=== PATIENT | female | born 1970 | race Caucasian/White ===

== ENCOUNTER 2020-08-07 12:34 | Day surgery (SDC) | payer OTHER ==
[~2020-08-07] VITALS: Ht 162.6 cm; Wt 87.1 kg
[~2020-08-07 12:34] MED LIST: ACETAMINOPHEN-1 EAC1 PO; CITALOPRAM HBR20 MG PO; DAYPRO600 MG PO; GABAPENTIN100 MG PO; GLIPIZIDE XL5 MG PO; LISINOPRIL-HCT1 EAC2 PO; LORTAB 7.5-5001 EACH PO; MELOXICAM15 MG PO; NORCO 5-325 TA1 EACH PO; PREDNISONE20 MG PO; PRILOSEC20 MG PO; PROTONIX40 MG PO; TRAMADOL HCL50 MG PO; ZITHROMAX250 MG PO
--- NOTE | 2020-08-08 11:06 | PATH ---
[facility] [address] [place], [place] [address] Signed SPECIMEN(S): A ANTRUM/PYLORUS SPECIMEN(S): B LOWER ESOPHAGUS SPECIMEN SOURCE: A. ANTRUM/PYLORUS B. LOWER ESOPHAGUS CLINICAL HISTORY: Pre: GERD, dark stools. Post: Stomach ulcer x 2, normal colon. Esophagogastroduodenoscopy, colonoscopy. MICROSCOPIC DESCRIPTION: Histologic sections of all submitted blocks are examined by light microscopy. These findings, together with the gross examination, support the pathologic diagnosis. FINAL PATHOLOGIC DIAGNOSIS: A. Stomach, antrum/pylorus, biopsy: - Antral mucosa with mild chronic, inactive gastritis and reactive changes. - Negative for Helicobacter organisms on HE stain. - Negative for dysplasia or malignancy. B. Esophagus, lower, biopsy: - Squamous mucosa with increased intraepithelial eosinophils and reactive changes. - Negative for intestinal metaplasia, dysplasia, or malignancy. - See comment. COMMENT: Regarding specimen B: Sections of the lower esophageal biopsy demonstrate squamous mucosa with increased intraepithelial eosinophils (approximately 27 per high power field), eosinophil degranulation, spongiosis, and basal cell hyperplasia. In the correct clinical context, these findings are compatible with eosinophilic esophagitis; correlation with endoscopic findings is necessary for this diagnosis. NAL:cml:C2NR GROSS DESCRIPTION: Two specimens are received in two containers, labeled "KF." A. The specimen, labeled "KF, 1," and designated on the requisition "antrum/pylorus," is received in formalin and consists of one bland soft tissue fragment that measures 0.3 cm in greatest dimension. PATIENT NAME: RICH RAUSCH PATHOLOGY DATE OF : 66 REPORT #: [id number] PHYSICIAN: ADDI HOFF PCP: BEATRIZ CALVILLO MD REPORT IS CONFIDENTIAL AND NOT TO BE RELEASED WITHOUT AUTHORIZATION [facility] [address] [place], [place] [address] Signed The specimen is entirely submitted in cassette (A1). B. The specimen, labeled "KF, 2," and designated on the requisition "lower esophagus," is received in formalin and consists of three thin, bland soft tissue fragments that measure 0.1-0.3 cm in greatest dimension. The specimen is entirely submitted in cassette (B1). Note: Smallest fragment is minute and may not survive processing. AT (under the direct supervision of a pathologist) The Gross Description was prepared using a voice recognition system. The report was reviewed for accuracy; however, sound-alike word errors, addition and/or deletions may occur. If there is any question about this report, please contact Client Services. PERFORMING LABORATORY: The technical component was performed by [facility] [address] (Heavy Equipment Rental Manager: Tressa Kee MD; CLIA# [id number]). [facility] [address] [address] (CLIA# [id number]). Diagnostician: Vero Higgins MD Pathologist Electronically Signed 08/08/2020 Copies: ~ PATIENT NAME: RICH RAUSCH SONG PATHOLOGY DATE OF : 66 REPORT #: [id number] PHYSICIAN: ADDI PATHOLOGY PCP: BEATRIZ CALVILLO MD REPORT IS CONFIDENTIAL AND NOT TO BE RELEASED WITHOUT AUTHORIZATION
--- NOTE | 2020-08-09 07:58 | OR ---
[facility] [address] [place], [place] [address] Signed DATE OF OPERATION: 08/07/2020 SURGEON: Yanet Marie MD PREOPERATIVE DIAGNOSIS: Episodic dark stool. POSTOPERATIVE DIAGNOSIS: 1. Pre-pyloric antral ulcer x2. 2. Normal colon to cecum. PROCEDURES: 1. Esophagogastroduodenoscopy with biopsy. 2. Total colonoscopy to cecum. ANESTHESIA: Intravenous sedation, fentanyl 150 mcg and Versed 4 mg. INDICATIONS: This 50-year-old white woman is a patient of Dr. Yanet Pressley. She was noted to have dark stools in April of this year and blood after wiping, this is not associated with pain upon defecation. She has been on Protonix for quite some time. She is known to have reflux symptoms as well. She has no family history of colon cancer. She is admitted at this time to undergo upper endoscopy and colonoscopy to better characterize her problem and understanding risks of bleeding, infection, perforation. FINDINGS: Upper endoscopy confirmed two pre-pyloric ulcers, somewhat less than 1 cm in size. They were not deep and it had a lucas white base. Most likely this accounts for her probable rectal bleeding issue. The esophagus was normal. There was a poor flap valve, but no sign of large hiatal hernia. CLOtest was negative. On colonoscopy, the prep was good. Complete colonoscopy was undertaken of the cecum. There was no sign of polyps, diverticular formation, or colitis or cancer. DESCRIPTION OF PROCEDURE: The patient was brought to the endoscopy suite, given topical Hurricaine spray, hypopharyngeal anesthesia, and placed in lateral decubitus position. She was given intravenous sedation to the point of slurred speech and nystagmus. A bite block was placed. An Olympus video upper endoscope was passed into the hypopharynx. The vocal Electronically Signed By: YANET MARIE MD 08/09/20 0758 PATIENT NAME: RICH RAUSCH OPERATIVE REPORT DATE OF : 66 REPORT #: [id number] PHYSICIAN: YANET MARIE MD PCP: BEATRIZ PRESSLEY MD REPORT IS CONFIDENTIAL AND NOT TO BE RELEASED WITHOUT AUTHORIZATION [facility] [address] [place], [place] [address] Signed cords were normal. Scope was advanced to the esophagus. Throughout its length, it was normal. Scope was passed to the stomach, which was insufflated with air. Rugal folds were normal. Passage beyond the antrum through the pylorus into the duodenum showed no sign of ulceration. The scope was carefully withdrawn. The pyloric channel appeared normal, but the distal antrum and pre-pyloric area were two definite ulcers, not bleeding, but with a lucas white base. Photographs were taken. The scope was manipulated to allow for biopsy of the antrum for both KARL and pathologic testing. Retroflexed view showed mild proximal gastritis. A poor flap valve, but no sign of ulcer proximally. The scope was straightened and withdrawn. Biopsies then taken of the distal esophageal mucosa though appeared normal. The remaining esophagus was normal. CLOtest was noted to be negative 30 minutes postprocedure. The patient was then prepared for colonoscopy. Additional sedation was given. Digital rectal examination performed showing no sign of anorectal abnormality. The Olympus video colonoscope was passed into the rectum and manipulated throughout the colon, ultimately intubating the cecum itself. The ileocecal valve and appendiceal orifice were normal. Scope was withdrawn examination throughout showed no sign of polyps, diverticular formation, colitis, or cancer. Retroflex view was normal as well. The scope was removed quite carefully through the anal canal to assess for fissure or other problem, there was no such finding. The patient was taken to the recovery room in good condition. CONCLUDING DIAGNOSIS: Most likely dark stool related to pre-pyloric antral ulcers, which are healing. PLAN: We will continue with PPI medication, but additionally give Carafate. We will see her back in 4-6 weeks and assess her clinical progress. MD EMMA Gracia/MODL /[id number] Copies: Electronically Signed By: YANET MARIE MD 08/09/20 0758 PATIENT NAME: RICH RAUSCH OPERATIVE REPORT DATE OF : 66 REPORT #: [id number] PHYSICIAN: YANET MARIE MD PCP: BEATRIZ PRESSLEY MD REPORT IS CONFIDENTIAL AND NOT TO BE RELEASED WITHOUT AUTHORIZATION [facility] [address] [facility] [place], [place] [address] Signed ~ Electronically Signed By: YANET MARIE MD 08/09/20 0758 PATIENT NAME: RICH RAUSCH SONG OPERATIVE REPORT DATE OF : 66 REPORT #: [id number] PHYSICIAN: YANET MARIE MD PCP: BEATRIZ PRESSLEY MD REPORT IS CONFIDENTIAL AND NOT TO BE RELEASED WITHOUT AUTHORIZATION
== END 2020-08-07 14:40 | disposition home or self-care (01) ==
LOC: DS 12:34 → OPS 12:34 → DS 14:00 → OPS 14:00
PROVIDERS: ATTEND Surgery
PROC: 0DJD8ZZ Inspection of Lower Intestinal Tract, Via Natural or Artificial Opening Endoscopic (ICD-10-PCS; 2020-08-07)
PROC: 0DB38ZX Excision of Lower Esophagus, Via Natural or Artificial Opening Endoscopic, Diagnostic (ICD-10-PCS; principal; 2020-08-07 14:00)
PROC: 0DB78ZX Excision of Stomach, Pylorus, Via Natural or Artificial Opening Endoscopic, Diagnostic (ICD-10-PCS; 2020-08-07 14:00)
DX: R19.5 Other fecal abnormalities (principal); K29.50 Unspecified chronic gastritis without bleeding; K21.9 Gastro-esophageal reflux disease without esophagitis; Z79.899 Other long term (current) drug therapy; Z88.5 Allergy status to narcotic agent
CPT/HCPCS: 99153; G0500; J2250; J3010; J7121

== ENCOUNTER 2022-12-15 11:33 | Inpatient (IN) | payer OTHER ==
[~2022-12-15] VITALS: Ht 162.6 cm; Wt 84.0 kg
--- OUTSIDE RECORDS SUMMARY | 2022-12-15 11:36 | XMS ---
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 [place] VISIT COUNT (12 MO.) 1 [facility] TOTAL 1 NOTE: Visits indicate total known visits. ED/UCC VISIT TRACKING (12 MO.) 12/15/2022 11:[address] [facility] [place] TYPE: Emergency COMPLAINT: - ABD/LOWER BACK PAIN INPATIENT VISIT TRACKING (12 MO.) No inpatient visits to display in this time frame [email or web address]
[2022-12-15] MEDS ORDERED: LOSARTAN-HCTZ1 EAC2 PO (12:51)
[2022-12-15] MEDS ORDERED: MELOXICAM7.5 MG PO (12:52)
[2022-12-15] MEDS ORDERED: DULOXETINE HCL30 MG PO (12:53)
[2022-12-15] MEDS ORDERED: VITAMIN D21250 MCG PO (12:53)
[2022-12-16] MEDS ORDERED: GABAPENTIN300 MG PO (08:32)
[2022-12-16] MEDS ORDERED: TRAZODONE HCL50 MG PO (08:33)
[2022-12-16] MEDS ORDERED: SUDOGEST30 MG PO (10:27)
[2022-12-16] MEDS ORDERED: VENTOLIN HFA18 GM INH (10:30)
[2022-12-16] MEDS ORDERED: GUAIFENESIN-CO473 ML PO (10:30)
[2022-12-16] MEDS ORDERED: BENZONATATE100 MG PO (10:31)
== END 2022-12-18 14:19 | disposition home or self-care (01) | DRG 440 ==
LOC: ED 11:33 → MS 11:35
PROVIDERS: ADMIT Family Medicine; ATTEND Family Medicine
DX: K85.90 Acute pancreatitis without necrosis or infection, unspecified (principal); Z20.822 Contact with and (suspected) exposure to COVID-19; E11.40 Type 2 diabetes mellitus with diabetic neuropathy, unspecified; I10 Essential (primary) hypertension; F32.A Depression, unspecified; Z90.49 Acquired absence of other specified parts of digestive tract; Z87.01 Personal history of pneumonia (recurrent); Z90.710 Acquired absence of both cervix and uterus; Z90.89 Acquired absence of other organs; Z79.84 Long term (current) use of oral hypoglycemic drugs; Z79.899 Other long term (current) drug therapy
CPT/HCPCS: 36415; 74177; 74183; 80053; 80061; 81001; 83036; 83690; 83735; 84100; 85025; 87502; A9579; C9113; C9803; J0360; J0696; J0780; J1170; J1650; J1885; J2060; J2405; J7030; J7121; Q9967; U0003

== ENCOUNTER 2023-06-08 14:28 | Emergency (ER) | payer OTHER ==
[~2023-06-08] VITALS: Ht 162.6 cm; Wt 79.5 kg
--- OUTSIDE RECORDS SUMMARY | ~2023-06-08 | XMS | Continuity of Care Document ---
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 Functional Status No information. Immunizations No information. Medications + + + + | date | description | facility | + + + + | 2022-12-18 00:00 | PSEUDOEPHEDRINE HCL | [facility] | + + + + | 2023-05-15 00:00 | PSEUDOEPHEDRINE HCL | [facility] | + + + + | 2023-05-16 00:00 | PSEUDOEPHEDRINE HCL | [facility] | + + + + | 2022-12-18 00:00 | Ergocalciferol (Vitamin | [facility] | | | D2) | | + + + + | 2023-05-15 00:00 | Ergocalciferol (Vitamin | [facility] | | | D2) | | + + + + | 2023-05-16 00:00 | Ergocalciferol (Vitamin | [facility] | | | D2) | | + + + + | 2022-12-18 00:00 | BENZONATATE | [facility] | + + + + | 2023-05-15 00:00 | BENZONATATE | [facility] | + + + + | 2023-05-16 00:00 | BENZONATATE | [facility] | + + + + | 2023-05-16 00:00 | CEFDINIR | [facility] | + + + + | 2022-12-18 00:00 | CITALOPRAM HYDROBROMIDE | [facility] | + + + + | 2023-05-15 00:00 | CITALOPRAM HYDROBROMIDE | [facility] | + + + + | 2023-05-16 00:00 | CITALOPRAM HYDROBROMIDE | [facility] | + + + + | 2014-11-20 00:00 | OMEPRAZOLE | [facility] | + + + + | 2014-11-20 00:00 | OMEPRAZOLE | [facility] | + + + + | 2013-07-19 00:00 | OXAPROZIN | [facility] | + + + + | 2013-07-19 00:00 | OXAPROZIN | [facility] | + + + + | 2014-05-11 00:00 | AZITHROMYCIN | [facility] | + + + + | 2014-05-11 00:00 | AZITHROMYCIN | [facility] | + + + + | 2019-02-11 00:00 | PANTOPRAZOLE SODIUM | [facility] | + + + + | 2019-02-11 00:00 | PANTOPRAZOLE SODIUM | [facility] | + + + + | 2022-12-18 00:00 | GABAPENTIN | [facility] | + + + + | 2023-05-15 00:00 | GABAPENTIN | [facility] | + + + + | 2023-05-16 00:00 | GABAPENTIN | [facility] | + + + + | 2022-12-18 00:00 | MELOXICAM | [facility] | + + + + | 2023-05-15 00:00 | MELOXICAM | [facility] | + + + + | 2023-05-16 00:00 | MELOXICAM | [facility] | + + + + | 2022-12-18 00:00 | predniSONE | [facility] | + + + + | 2023-05-15 00:00 | predniSONE | [facility] | + + + + | 2023-05-16 00:00 | predniSONE | [facility] | + + + + | 2022-12-18 00:00 | GLIPIZIDE | [facility] | + + + + | 2023-05-15 00:00 | GLIPIZIDE | [facility] | + + + + | 2023-05-16 00:00 | GLIPIZIDE | [facility] | + + + + | 2022-12-18 00:00 | DULOXETINE HCL | [facility] | + + + + | 2023-05-15 00:00 | DULOXETINE HCL | [facility] | + + + + | 2023-05-16 00:00 | DULOXETINE HCL | [facility] | + + + + | 2022-12-18 00:00 | TRAZODONE HCL | [facility] | + + + + | 2023-05-15 00:00 | TRAZODONE HCL | [facility] | + + + + | 2023-05-16 00:00 | TRAZODONE HCL | [facility] | + + + + | 2013-08-06 00:00 | HYDROCODONE | [facility] | | | BIT/ACETAMINOPHEN | | + + + + | 2013-08-06 00:00 | HYDROCODONE | [facility] | | | BIT/ACETAMINOPHEN | | + + + + | 2022-12-18 00:00 | ALBUTEROL SULFATE | [facility] | + + + + | 2023-05-15 00:00 | ALBUTEROL SULFATE | [facility] | + + + + | 2023-05-16 00:00 | ALBUTEROL SULFATE | [facility] | + + + + | 2022-12-18 00:00 | | [facility] | | | LOSARTAN/HYDROCHLOROTHIAZID | | | | E | | + + + + | 2023-05-15 00:00 | | [facility] | | | LOSARTAN/HYDROCHLOROTHIAZID | | | | E | | + + + + | 2023-05-16 00:00 | | [facility] | | | LOSARTAN/HYDROCHLOROTHIAZID | | | | E | | + + + + | 2014-11-20 00:00 | ACETAMINOPHEN WITH CODEINE | [facility] | | | | | + + + + | 2014-11-20 00:00 | ACETAMINOPHEN WITH CODEINE | [facility] | | | | | + + + + | 2022-12-18 00:00 | Guaifenesin/Codeine | [facility] | | | Phosphate | | + + + + | 2023-05-15 00:00 | Guaifenesin/Codeine | [facility] | | | Phosphate | | + + + + | 2023-05-16 00:00 | Guaifenesin/Codeine | [facility] | | | Phosphate | | + + + + Problems + + + + | date | description | facility | + + + + | 2014-11-20 00:00 | Gastritis | [facility] | + + + + | 2014-11-20 00:00 | Gastritis | [facility] | + + + + | 2015-04-19 00:00 | Oliguria | [facility] | + + + + | 2015-04-19 00:00 | Oliguria | [facility] | + + + + | 2016-08-01 00:00 | Obstruction of esophagus | [facility] | | | due to food impaction | | + + + + | 2016-08-01 00:00 | Obstruction of esophagus | [facility] | | | due to food impaction | | + + + + | 2019-02-11 00:00 | Abdominal pain | [facility] | + + + + | 2019-02-11 00:00 | Abdominal pain | [facility] | + + + + | 2022-05-09 15:30 | ENCNTR SCREEN MAMMOGRAM | [facility] | | | FOR MALIGNANT NE | | + + + + | 2022-07-08 14:27 | ENCNTR SCREEN MAMMOGRAM | [facility] | | | FOR MALIGNANT NEOPLASM OF | | | | BREAST | | + + + + | 2022-11-05 16:31 | Dizziness and giddiness | [facility] | + + + + | 2022-12-15 00:00 | Pancreatitis | [facility] | + + + + | 2022-12-15 00:00 | Pancreatitis | [facility] | + + + + | 2022-12-17 10:39 | TYPE 2 DIABETES MELLITUS | [facility] | | | WITH DIABETIC NEUROPATHY, | | + + + + | 2022-12-17 10:39 | DEPRESSION, UNSPECIFIED | [facility] | + + + + | 2022-12-17 10:39 | Essential (primary) | [facility] | | | hypertension | | + + + + | 2022-12-17 10:39 | ACUTE PANCREATITIS WITHOUT | [facility] | | | NECROSIS OR INFECTION, | | | | UNSP | | + + + + | 2022-12-17 10:39 | SUPPLIES PACKER (CURRENT) USE OF | [facility] | | | ORAL HYPOGLYCEMIC DRUGS | | + + + + | 2022-12-17 10:39 | OTHER HALFWAY (CURRENT) | [facility] | | | DRUG THERAPY | | + + + + | 2022-12-17 10:39 | PERSONAL HISTORY OF | [facility] | | | PNEUMONIA (RECURRENT) | | + + + + | 2022-12-17 10:39 | ACQUIRED ABSENCE OF OTHER | [facility] | | | SPECIFIED PARTS OF DIGES | | + + + + | 2022-12-17 10:39 | ACQUIRED ABSENCE OF BOTH | [facility] | | | CERVIX AND UTERUS | | + + + + | 2022-12-17 10:39 | ACQUIRED ABSENCE OF OTHER | [facility] | | | ORGANS | | + + + + | 2023 13:38 | UNILATERAL PRIMARY | [facility] | | | OSTEOARTHRITIS, RIGHT HIP | | + + + + | 2023 13:38 | CONTUSION OF RIGHT HIP, | [facility] | | | INITIAL ENCOUNTE | | + + + + | 2023 13:38 | CONTUSION OF RIGHT KNEE, | [facility] | | | INITIAL ENCOUNTER | | + + + + | 2023-04-30 15:42 | 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 | | + + + + | 2023-04-30 15:42 | OTHER SPECIFIED DISORDERS | [facility] | | | OF BONE, THIGH | | + + + + | 2023-05-15 00:00 | Leukocytosis | [facility] | + + + + | 2023-05-15 00:00 | Weakness | [facility] | + + + + | 2023-05-15 12:13 | ELEVATED WHITE BLOOD CELL | [facility] | | | COUNT, UNSPECIFIED | | + + + + | 2023-05-15 12:13 | Essential (primary) | [facility] | | | hypertension | | + + + + | 2023-05-15 12:13 | FEVER, UNSPECIFIED | [facility] | + + + + | 2023-05-15 12:13 | WEAKNESS | [facility] | + + + + | 2023-05-15 12:13 | OTHER SUPPLIES PACKER (CURRENT) | [facility] | | | DRUG THERAPY | | + + + + | 2023-05-16 00:00 | Pyelonephritis | [facility] | + + + + | 2023-05-16 07:32 | Essential (primary) | [facility] | | | hypertension | | + + + + | 2023-05-16 07:32 | Tubulo-interstitial | [facility] | | | nephritis, not specified as | | | | acute or chronic | | + + + + | 2023-05-16 07:32 | FEVER, UNSPECIFIED | [facility] | + + + + | 2023-05-16 07:32 | OTHER HALFWAY (CURRENT) | [facility] | | | DRUG THERAPY | | + + + + Procedures No information. Results/Labs +--------+--------+ +---------+--------+---------+ | test | date | facility | value | unit | notes | +--------+--------+ +---------+--------+---------+ + + | Result panel 1 | + + + + + + + + + | | 2022-12-15 | [facility] | NEGATIVE | (missing) | (missing) | | (unavailable | 15[facility]20:08 [facility] | | | | + + + + + + + + + | Result panel 2 | + + + + + + + + + | | 2022-12-15 | [facility] | NEGATIVE | (missing) | (missing) | | (unavailable | 15:20:08 [facility] | | | | + + + + + + + + + | Result panel 3 | + + + + + + + + + | | 2022-12-15 | [facility] | NEGATIVE | (missing) | (missing) | | (unavailable | 15:20:08 [facility] | | | | + + + + + + + + + | Result panel 4 | + + + + + + + + + | | 2022-12-15 | [facility] | NEGATIVE | (missing) | (missing) | | (unavailable | 15:20:08 [facility] | | | | + + + + + + + + + | Result panel 5 | + + + + + + + + + | | 2022-12-15 | [facility] | YELLOW | (missing) | (missing) | | (unavailable | 16:11:08 [facility] | | | | + + + + + + + + + | Result panel 6 | + + + + + +---------+ + + | | 2022-12-15 | [facility] | CLEAR | (missing) | (missing) | | (unavailable | 16:11:08 [facility] | | | | + + + +---------+ + + + + | Result panel 7 | + + + + + + + + + | | 2022-12-15 | [facility] | NEGATIVE | (missing) | (missing) | | (unavailable | 16:11:08 [facility] | | | | + + + + + + + + + | Result panel 8 | + + + + + + + + + | | 2022-12-15 | [facility] | NEGATIVE | (missing) | (missing) | | (unavailable | 16:11:08 [facility] | | | | + + + + + + + + + | Result panel 9 | + + + + + + + + + | | 2022-12-15 | [facility] | NEGATIVE | (missing) | (missing) | | (unavailable | 16:11:08 [facility] | | | | + + + + + + + + + | Result panel 10 | + + + + + +---------+ + + | | 2022-12-15 | [facility] | 1.020 | (missing) | (missing) | | (unavailable | 16:11:08 [facility] | | | | + + + +---------+ + + + + | Result panel 11 | + + + + + + + + + | | 2022-12-15 | [facility] | NEGATIVE | (missing) | (missing) | | (unavailable | 16:11:08 [facility] | | | | + + + + + + + + + | Result panel 12 | + + + + + +-------+ + + | | 2022-12-15 | [facility] | 5.0 | (missing) | (missing) | | (unavailable | 16:11:08 [facility] | | | | + + + +-------+ + + + + | Result panel 13 | + + + + + + + + + | | 2022-12-15 | [facility] | NEGATIVE | (missing) | (missing) | | (unavailable | 16:11:08 [facility] | | | | + + + + + + + + + | Result panel 14 | + + + + + +-------+ + + | | 2022-12-15 | [facility] | 2.0 | (missing) | (missing) | | (unavailable | 16:11:08 [facility] | | | | + + + +-------+ + + + + | Result panel 15 | + + + + + + + + + | | 2022-12-15 | [facility] | NEGATIVE | (missing) | (missing) | | (unavailable | 16:11:08 [facility] | | | | + + + + + + + + + | Result panel 16 | + + + + + +---------+ + + | | 2022-12-15 | [facility] | TRACE | (missing) | (missing) | | (unavailable | 16:11:08 [facility] | | | | + + + +---------+ + + + + | Result panel 17 | + + + + + +-------+ + + | | 2022-12-15 | [facility] | 0-1 | (missing) | (missing) | | (unavailable | 16::08 | [facility] | | | | + + + +-------+ + + + + | Result panel 18 | + + + + + +--------+ + + | | 2022-12-15 | [facility] | 7-11 | (missing) | (missing) | | (unavailable | 16:11:08 [facility] | | | | + + + +--------+ + + + + | Result panel 19 | + + + + + + + + + | | 2022-12-15 | [facility] | SQUAMOUS 3+ | (missing) | (missing) | | (unavailable | 16:11:08 [facility] | | | | + + + + + + + + + | Result panel 20 | + + + + + +------+ + + | | 2022-12-15 | [facility] | 1+ | (missing) | (missing) | | (unavailable | 16:11:08 [facility] | | | | + + + +------+ + + + + | Result panel 21 | + + + + + + + + + | | 2022-12-15 | [facility] | NONE SEEN | (missing) | (missing) | | (unavailable | 16:11:08 [facility] | | | | + + + + + + + + + | Result panel 22 | + + + + + +------+ + + | | 2022-12-15 | [facility] | No | (missing) | (missing) | | (unavailable | 16:11:08 [facility] | | | | + + + +------+ + + + + | Result panel 23 | + + + + + +-------+---------+ + | | 2022-12-16 | [facility] | 3.8 | mg/dL | (missing) | | (unavailable | 05:23:08 [facility] | | | | + + + +-------+---------+ + + + | Result panel 24 | + + + + + +-------+---------+ + | | 2022-12-16 | [facility] | 1.9 | mg/dL | (missing) | | (unavailable | 05:23:08 [facility] | | | | + + + +-------+---------+ + + + | Result panel 25 | + + + + + +-------+---------+ + | | 2022-12-16 | [facility] | 118 | mg/dL | (missing) | | (unavailable | 05:23:08 [facility] | | | | + + + +-------+---------+ + + + | Result panel 26 | + + + + + +------+ + + | | 2022-12-16 | [facility] | 54 | (missing) | (missing) | | (unavailable | 05:23:08 [facility] | | | | + + + +------+ + + + + | Result panel 27 | + + + + + +---------+ + + | | 2022-12-16 | [facility] | 64.00 | (missing) | (missing) | | (unavailable | 05:23:08 [facility] | | | | + + + +---------+ + + + + | Result panel 28 | + + + + + +------+---------+ + | | 2022-12-16 | [facility] | 47 | mg/dL | (missing) | | (unavailable | 05:23:08 [facility] | | | | + + + +------+---------+ + + + | Result panel 29 | + + + + + +-------+ + + | | 2022-12-16 | [facility] | 2.2 | (missing) | (missing) | | (unavailable | 05:23:08 [facility] | | | + + + +-------+ + + + + | Result panel 30 | + + + + + +------+ + + | | 2022-12-16 | [facility] | 16 | (missing) | (missing) | | (unavailable | 05:23:08 [facility] | | | | + + + +------+ + + + + | Result panel 31 | + + + + + +------+ + + | | 2022-12-16 | [facility] | 83 | (missing) | (missing) | | (unavailable | 05:23:08 [facility] | | | | + + + +------+ + + + + | Result panel 32 | + + + + + +-------+ + + | | 2022-12-16 | [facility] | 6.4 | (missing) | (missing) | | (unavailable | 05:23:08 [facility] | | | | + + + +-------+ + + + + | Result panel 33 | + + + + + +------+ + + | | 2022-12-17 | [facility] | 90 | (missing) | (missing) | | (unavailable | 05:25:08 [facility] | | | | + + + +------+ + + + + | Result panel 34 | + + + + + +-------+ + + | | 2022-12-18 | [facility] | 9.4 | (missing) | (missing) | | (unavailable | 05:56:08 [facility] | | | | + + + +-------+ + + + + | Result panel 35 | + + + + + +--------+ + + | | 2022-12-18 | [facility] | 4.62 | (missing) | (missing) | | (unavailable | 05:56:08 [facility] | | | | + + + +--------+ + + + + | Result panel 36 | + + + + + +--------+ + + | | 2022-12-18 | [facility] | 12.9 | (missing) | (missing) | | (unavailable | 05:56:08 [facility] | | | | + + + +--------+ + + + + | Result panel 37 | + + + + + +--------+ + + | | 2022-12-18 | [facility] | 38.5 | (missing) | (missing) | | (unavailable | 05:56:08 [facility] | | | | + + + +--------+ + + + + | Result panel 38 | + + + + + +--------+ + + | | 2022-12-18 | [facility] | 83.3 | (missing) | (missing) | | (unavailable | 05:56:08 [facility] | | | | + + + +--------+ + + + + | Result panel 39 | + + + + + +--------+ + + | | 2022-12-18 | [facility] | 27.9 | (missing) | (missing) | | (unavailable | 05:56:08 [facility] | | | | + + + +--------+ + + + + | Result panel 40 | + + + + + +--------+ + + | | 2022-12-18 | [facility] | 33.5 | (missing) | (missing) | | (unavailable | 05:56:08 [facility] | | | + + + +--------+ + + + + | Result panel 41 | + + + + + +--------+ + + | | 2022-12-18 | [facility] | 14.4 | (missing) | (missing) | | (unavailable | 05:56:08 [facility] | | | + + + +--------+ + + + + | Result panel 42 | + + + + + +-------+ + + | | 2022-12-18 | [facility] | 264 | (missing) | (missing) | | (unavailable | 05:56:08 [facility] | | | + + + +-------+ + + + + | Result panel 43 | + + + + + +--------+ + + | | 2022-12-18 | [facility] | 80.7 | (missing) | (missing) | | (unavailable | 05:56:08 [facility] | | | | + + + +--------+ + + + + | Result panel 44 | + + + + + +--------+ + + | | 2022-12-18 | [facility] | 11.3 | (missing) | (missing) | | (unavailable | 05:56:08 [facility] | | | + + + +--------+ + + + + | Result panel 45 | + + + + + +-------+ + + | | 2022-12-18 | [facility] | 6.7 | (missing) | (missing) | | (unavailable | 05:56:08 [facility] | | | + + + +-------+ + + + + | Result panel 46 | + + + + + +-------+ + + | | 2022-12-18 | [facility] | 1.2 | (missing) | (missing) | | (unavailable | 05:56:08 [facility] | | | | + + + +-------+ + + + + | Result panel 47 | + + + + + +-------+ + + | | 2022-12-18 | [facility] | 0.1 | (missing) | (missing) | | (unavailable | 05:56:08 [facility] | | | | + + + +-------+ + + + + | Result panel 48 | + + + + + +-------+---------+ + | | 2022-12-18 | [facility] | 122 | mg/dL | (missing) | | (unavailable | 05:56:08 [facility] | | | | + + + +-------+---------+ + + + | Result panel 49 | + + + + + +-----+---------+ + | | 2022-12-18 | [facility] | 7 | mg/dL | (missing) | | (unavailable | 05:56:08 [facility] | | | | + + + +-----+---------+ + + + | Result panel 50 | + + + + + +--------+---------+ + | | 2022-12-18 | [facility] | 0.68 | mg/dL | (missing) | | (unavailable | 05:56:08 [facility] | | | | + + + +--------+---------+ + + + | Result panel 51 | + + + + + +-------+ + + | | 2022-12-18 | [facility] | 103 | (missing) | (missing) | | (unavailable | 05:56:08 [facility] | | | + + + +-------+ + + + + | Result panel 52 | + + + + + +---------+ + + | | 2022-12-18 | [facility] | 10.29 | (missing) | (missing) | | (unavailable | 05:56:08 [facility] | | | | + + + +---------+ + + + + | Result panel 53 | + + + + + +-------+ + + | | 2022-12-18 | [facility] | 142 | (missing) | (missing) | | (unavailable | 05:56:08 [facility] | | | | + + + +-------+ + + + + | Result panel 54 | + + + + + +-------+ + + | | 2022-12-18 | [facility] | 3.5 | (missing) | (missing) | | (unavailable | [facility]:56:08 [facility] | | | | + + + +-------+ + + + + | Result panel 55 | + + + + + +-------+ + + | | 2022-12-18 | [facility] | 105 | (missing) | (missing) | | (unavailable | [facility]56:08 [facility] | | | | + + + +-------+ + + + + | Result panel 56 | + + + + + +------+ + + | | 2022-12-18 | [facility] | 27 | (missing) | (missing) | | (unavailable | [facility]56:08 [facility] | | | | + + + +------+ + + + + | Result panel 57 | + + + + + +--------+ + + | | 2022-12-18 | [facility] | 13.5 | (missing) | (missing) | | (unavailable | [facility]:56:08 [facility] | | | | + + + +--------+ + + + + | Result panel 58 | + + + + + +-------+---------+ + | | 2022-12-18 | [facility] | 8.7 | mg/dL | (missing) | | (unavailable | 05:56:08 [facility] | | | | + + + +-------+---------+ + + + | Result panel 59 | + + + + + +-------+ + + | | 2022-12-18 | [facility] | 6.9 | (missing) | (missing) | | (unavailable | [facility]56:08 [facility] | | | | + + + +-------+ + + + + | Result panel 60 | + + + + + +-------+ + + | | 2022-12-18 | [facility] | 3.1 | (missing) | (missing) | | (unavailable | [facility]:56:08 [facility] | | | | + + + +-------+ + + + + | Result panel 61 | + + + + + +-------+ + + | | 2022-12-18 | [facility] | 3.8 | (missing) | (missing) | | (unavailable | 05:56:08 | [facility] | | | | + + + +-------+ + + + + | Result panel 62 | + + + + + +--------+ + + | | 2022-12-18 | [facility] | 0.82 | (missing) | (missing) | | (unavailable | 05:56:08 | [facility] | | | | + + + +--------+ + + + + | Result panel 63 | + + + + + +-------+ + + | | 2022-12-18 | [facility] | 0.5 | (missing) | (missing) | | (unavailable | 05:56:08 | [facility] | | | | + + + +-------+ + + + + | Result panel 64 | + + + + + +------+ + + | | 2022-12-18 | [facility] | 49 | (missing) | (missing) | | (unavailable | 05:56:08 | [facility] | | | | + + + +------+ + + + + | Result panel 65 | + + + + + +-------+ + + | | 2022-12-18 | [facility] | 102 | (missing) | (missing) | | (unavailable | 05:56:08 | [facility] | | | | + + + +-------+ + + + + | Result panel 66 | + + + + + +------+ + + | | 2022-12-18 | [facility] | 97 | (missing) | (missing) | | (unavailable | 05:56:08 | [facility] | | | | + + + +------+ + + + + | Result panel 67 | + + + + + +-------+ + + | | 2022-12-18 | [facility] | 116 | (missing) | (missing) | | (unavailable | 11:30:08 | [facility] | | | | + + + +-------+ + + + + | Result panel 68 | + + + + + + + + + | | 2023-05-15 | [facility] | NEGATIVE | (missing) | (missing) | | (unavailable | 12:50:07 | [facility] | | | | + + + + + + + + + | Result panel 69 | + + + + + + + + + | | 2023-05-15 | [facility] | NEGATIVE | (missing) | (missing) | | (unavailable | 12:50:07 | [facility] | | | | + + + + + + + + + | Result panel 70 | + + + + + + + + + | | 2023-05-15 | [facility] | NEGATIVE | (missing) | (missing) | | (unavailable | 12:50:07 | [facility] | | | | + + + + + + + + + | Result panel 71 | + + + + + + + + + | | 2023-05-15 | [facility] | NEGATIVE | (missing) | (missing) | | (unavailable | 12:50:07 | [facility] | | | | + + + + + + + + + | Result panel 72 | + + + + + + + + + | | 2023-05-15 | [facility] | NEGATIVE | (missing) | (missing) | | (unavailable | 12:50:07 | [facility] | | | | + + + + + + + + + | Result panel 73 | + + + + + + + + + | | 2023-05-15 | [facility] | NEGATIVE | (missing) | (missing) | | (unavailable | 12:50:07 | [facility] | | | | + + + + + + + + + | Result panel 74 | + + + + + + + + + | | 2023-05-15 | [facility] | NEGATIVE | (missing) | (missing) | | (unavailable | 12:50:07 | [facility] | | | | + + + + + + + + + | Result panel 75 | + + + + + + + + + | | 2023-05-15 | [facility] | NEGATIVE | (missing) | (missing) | | (unavailable | 12:50:07 | [facility] | | | | + + + + + + + + + | Result panel 76 | + + + + + +--------+ + + | | 2023-05-15 | [facility] | 30.0 | (missing) | (missing) | | (unavailable | 13:15:07 | [facility] | | | | + + + +--------+ + + + + | Result panel 77 | + + + + + +------+ + + | | 2023-05-15 | [facility] | 94 | (missing) | (missing) | | (unavailable | 13:15:07 | [facility] | | | | + + + +------+ + + + + | Result panel 78 | + + + + + +-----+ + + | | 2023-05-15 | [facility] | 3 | (missing) | (missing) | | (unavailable | 13:15:07 | [facility] | | | | + + + +-----+ + + + + | Result panel 79 | + + + + + +-----+ + + | | 2023-05-15 | [facility] | 2 | (missing) | (missing) | | (unavailable | 13:15:07 | [facility] | | | | + + + +-----+ + + + + | Result panel 80 | + + + + + +-----+ + + | | 2023-05-15 | [facility] | 1 | (missing) | (missing) | | (unavailable | 13:15:07 | [facility] | | | | + + + +-----+ + + + + | Result panel 81 | + + + + + +--------+ + + | | 2023-05-15 | [facility] [facility] | 5.29 | (missing) | (missing) | | (unavailable | 13:15:07 | [facility] | | | | + + + +--------+ + + + + | Result panel 82 | + + + + + +--------+ + + | | 2023-05-15 | [facility] | 14.7 | (missing) | (missing) | | (unavailable | 13:15:07 [facility] | | | | + + + +--------+ + + + + | Result panel 83 | + + + + + +-------+---------+ + | | 2023-05-15 | [facility] | 209 | mg/dL | (missing) | | (unavailable | 13:15:07 [facility] | | | + + + +-------+---------+ + + + | Result panel 84 | + + + + + +------+---------+ + | | 2023-05-15 | [facility] | 15 | mg/dL | (missing) | | (unavailable | 13:15:07 [facility] | | | + + + +------+---------+ + + + | Result panel 85 | + + + + + +--------+---------+ + | | 2023-05-15 | [facility] | 0.96 | mg/dL | (missing) | | (unavailable | 13:15:07 [facility] | | | + + + +--------+---------+ + + + | Result panel 86 | + + + + + +------+ + + | | 2023-05-15 | [facility] | 70 | (missing) | (missing) | | (unavailable | 13:15:07 [facility] | | | + + + +------+ + + + + | Result panel 87 | + + + + + +---------+ + + | | 2023-05-15 | [facility] | 15.62 | (missing) | (missing) | | (unavailable | [facility]:15:07 [facility] | | | + + + +---------+ + + + + | Result panel 88 | + + + + + +-------+ + + | | 2023-05-15 | [facility] | 136 | (missing) | (missing) | | (unavailable | 13:15:07 [facility] | | | + + + +-------+ + + + + | Result panel 89 | + + + + + +--------+ + + | | 2023-05-15 | [facility] | 45.0 | (missing) | (missing) | | (unavailable | [facility]:15:07 [facility] | | | + + + +--------+ + + + + | Result panel 90 | + + + + + +-------+ + + | | 2023-05-15 | [facility] | 3.5 | (missing) | (missing) | | (unavailable | [facility]:15:07 [facility] | | | + + + +-------+ + + + + | Result panel 91 | + + + + + +------+ + + | | 2023-05-15 | [facility] | 97 | (missing) | (missing) | | (unavailable | 13:15:07 [facility] | | | + + + +------+ + + + + | Result panel 92 | + + + + + +------+ + + | | 2023-05-15 | [facility] | 28 | (missing) | (missing) | | (unavailable | 13:15:07 [facility] | | | + + + +------+ + + + + | Result panel 93 | + + + + + +--------+ + + | | 2023-05-15 | [facility] | 14.5 | (missing) | (missing) | | (unavailable | 13:15:07 [facility] | | | + + + +--------+ + + + + | Result panel 94 | + + + + + +-------+---------+ + | | 2023-05-15 | [facility] | 9.4 | mg/dL | (missing) | | (unavailable | 13:15:07 [facility] | | | + + + +-------+---------+ + + + | Result panel 95 | + + + + + +-------+ + + | | 2023-05-15 | [facility] | 8.6 | (missing) | (missing) | | (unavailable | [facility]:15:07 [facility] | | | + + + +-------+ + + + + | Result panel 96 | + + + + + +-------+ + + | | 2023-05-15 | [facility] | 3.4 | (missing) | (missing) | | (unavailable | [facility]:15:07 [facility] | | | + + + +-------+ + + + + | Result panel 97 | + + + + + +-------+ + + | | 2023-05-15 | [facility] | 5.2 | (missing) | (missing) | | (unavailable | [facility]:15:07 [facility] | | | + + + +-------+ + + + + | Result panel 98 | + + + + + +--------+ + + | | 2023-05-15 | [facility] | 0.65 | (missing) | (missing) | | (unavailable | 13:15:07 [facility] | | | + + + +--------+ + + + + | Result panel 99 | + + + + + +-------+ + + | | 2023-05-15 | [facility] | 0.5 | (missing) | (missing) | | (unavailable | [facility]:15:07 [facility] | | | + + + +-------+ + + + + | Result panel 100 | + + + + + +--------+ + + | | 2023-05-15 | [facility] | 85.0 | (missing) | (missing) | | (unavailable | [facility]:15:07 [facility] | | | + + + +--------+ + + + + | Result panel 101 | + + + + + +------+ + + | | 2023-05-15 | [facility] | 17 | (missing) | (missing) | | (unavailable | [facility]15:07 [facility] | | | + + + +------+ + + + + | Result panel 102 | + + + + + +------+ + + | | 2023-05-15 | [facility] | 20 | (missing) | (missing) | | (unavailable | 13:15:07 [facility] | | | + + + +------+ + + + + | Result panel 103 | + + + + + +-------+ + + | | 2023-05-15 | [facility] | 101 | (missing) | (missing) | | (unavailable | 13:15:07 [facility] | | | + + + +-------+ + + + + | Result panel 104 | + + + + + +------+ + + | | 2023-05-15 | [facility] | 38 | (missing) | (missing) | | (unavailable | 13:15:07 [facility] | | | + + + +------+ + + + + | Result panel 105 | + + + + + +------+ + + | | 2023-05-15 | [facility] | 94 | (missing) | (missing) | | (unavailable | 13:15:07 [facility] | | | + + + +------+ + + + + | Result panel 106 | + + + + + +--------+ + + | | 2023-05-15 | [facility] | 27.9 | (missing) | (missing) | | (unavailable | [facility]:15:07 [facility] | | | + + + +--------+ + + + + | Result panel 107 | + + + + + +-----+ + + | | 2023-05-15 | [facility] | 3 | (missing) | (missing) | | (unavailable | [facility]15:07 [facility] | | | + + + +-----+ + + + + | Result panel 108 | + + + + + +-----+ + + | | 2023-05-15 | [facility] | 2 | (missing) | (missing) | | (unavailable | 13[facility]15:07 [facility] | | | + + + +-----+ + + + + | Result panel 109 | + + + + + +-----+ + + | | 2023-05-15 | [facility] | 1 | (missing) | (missing) | | (unavailable | 13:15:07 [facility] | | | + + + +-----+ + + + + | Result panel 110 | + + + + + +--------+ + + | | 2023-05-15 | [facility] | 32.8 | (missing) | (missing) | | (unavailable | [facility]:15:07 [facility] | | | + + + +--------+ + + + + | Result panel 111 | + + + + + +--------+ + + | | 2023-05-15 | [facility] | 15.0 | (missing) | (missing) | | (unavailable | [facility]15:07 [facility] | | | + + + +--------+ + + + + | Result panel 112 | + + + + + +-------+ + + | | 2023-05-15 | [facility] | 305 | (missing) | (missing) | | (unavailable | 13:15:07 [facility] | | | + + + +-------+ + + + + | Result panel 113 | + + + + + +-------+ + + | | 2023-05-15 | [facility] | 1.4 | (missing) | (missing) | | (unavailable | 14:24:07 [facility] | | | + + + +-------+ + + + + | Result panel 114 | + + + + + +-------+ + + | | 2023-05-15 | [facility] | 1.4 | (missing) | (missing) | | (unavailable | 14:24:07 [facility] | | | + + + +-------+ + + + + | Result panel 115 | + + + + + + + + + | | 2023-05-15 | [facility] | YELLOW | (missing) | (missing) | | (unavailable | 15:20:07 [facility] | | | + + + + + + + + + | Result panel 116 | + + + + + +---------+ + + | | 2023-05-15 | [facility] | CLEAR | (missing) | (missing) | | (unavailable | 15:20:07 [facility] | | | + + + +---------+ + + + + | Result panel 117 | + + + + + + + + + | | 2023-05-15 | [facility] | NEGATIVE | (missing) | (missing) | | (unavailable | 15:20:07 [facility] | | | + + + + + + + + + | Result panel 118 | + + + + + + + + + | | 2023-05-15 | [facility] | NEGATIVE | (missing) | (missing) | | (unavailable | 15:20:07 [facility] | | | + + + + + + + + + | Result panel 119 | + + + + + +---------+ + + | | 2023-05-15 | [facility] | TRACE | (missing) | (missing) | | (unavailable | 15:20:07 [facility] | | | + + + +---------+ + + + + | Result panel 120 | + + + + + +---------+ + + | | 2023-05-15 | [facility] | 1.015 | (missing) | (missing) | | (unavailable | 15:20:07 [facility] | | | + + + +---------+ + + + + | Result panel 121 | + + + + + + + + + | | 2023-05-15 | [facility] | NEGATIVE | (missing) | (missing) | | (unavailable | 15:20:07 [facility] | | | + + + + + + + + + | Result panel 122 | + + + + + +-------+ + + | | 2023-05-15 | [facility] | 5.0 | (missing) | (missing) | | (unavailable | 15:20:07 [facility] | | | + + + +-------+ + + + + | Result panel 123 | + + + + + + + + + | | 2023-05-15 | [facility] | NEGATIVE | (missing) | (missing) | | (unavailable | 15:20:07 [facility] | | | + + + + + + + + + | Result panel 124 | + + + + + +-------+ + + | | 2023-05-15 | [facility] | 1.0 | (missing) | (missing) | | (unavailable | 15:20:07 [facility] | | | + + + +-------+ + + + + | Result panel 125 | + + + + + + + + + | | 2023-05-15 | [facility] | NEGATIVE | (missing) | (missing) | | (unavailable | 15:20:07 [facility] | | | + + + + + + + + + | Result panel 126 | + + + + + + + + + | | 2023-05-15 | [facility] | NEGATIVE | (missing) | (missing) | | (unavailable | 15:20:07 [facility] | | | + + + + + + + + + | Result panel 127 | + + + + + +-------+ + + | | 2023-05-15 | [facility] | 0-1 | (missing) | (missing) | | (unavailable | 15:20:07 [facility] | | | + + + +-------+ + + + + | Result panel 128 | + + + + + +-------+ + + | | 2023-05-15 | [facility] | 4-6 | (missing) | (missing) | | (unavailable | 15:20:07 [facility] | | | + + + +-------+ + + + + | Result panel 129 | + + + + + + + + + | | 2023-05-15 | [facility] | SQUAMOUS 2+ | (missing) | (missing) | | (unavailable | 15:20:07 [facility] | | | | + + + + + + + + + | Result panel 130 | + + + + + + + + + | | 2023-05-15 | [facility] | NONE SEEN | (missing) | (missing) | | (unavailable | 15:20:07 [facility] | | | + + + + + + + + + | Result panel 131 | + + + + + + + + + | | 2023-05-15 | [facility] | NONE SEEN | (missing) | (missing) | | (unavailable | 15:20:07 [facility] | | | + + + + + + + + + | Result panel 132 | + + + + + + + + + | | 2023-05-15 | [facility] | NONE SEEN | (missing) | (missing) | | (unavailable | 15:20:07 [facility] | | | + + + + + + + + + | Result panel 133 | + + + + + +------+ + + | | 2023-05-15 | [facility] | No | (missing) | (missing) | | (unavailable | 15:20:07 [facility] | | | + + + +------+ + + + + | Result panel 134 | + + + + + + + + + | | 2023-05-15 | [facility] | CLEAN CATCH | (missing) | (missing) | | (unavailable | 15:20:07 [facility] | | | + + + + + + + + + | Result panel 135 | + + + + + + + + + | | 2023-05-15 | [facility] | YELLOW | (missing) | (missing) | | (unavailable | 15:20:07 [facility] | | | + + + + + + + + + | Result panel 136 | + + + + + +---------+ + + | | 2023-05-15 | [facility] | CLEAR | (missing) | (missing) | | (unavailable | 15:20:07 [facility] | | | + + + +---------+ + + + + | Result panel 137 | + + + + + + + + + | | 2023-05-15 | [facility] | NEGATIVE | (missing) | (missing) | | (unavailable | 15:20:07 [facility] | | | + + + + + + + + + | Result panel 138 | + + + + + + + + + | | 2023-05-15 | [facility] | NEGATIVE | (missing) | (missing) | | (unavailable | 15:20:07 [facility] | | | + + + + + + + + + | Result panel 139 | + + + + + +---------+ + + | | 2023-05-15 | [facility] | TRACE | (missing) | (missing) | | (unavailable | 15:20:07 [facility] | | | + + + +---------+ + + + + | Result panel 140 | + + + + + +---------+ + + | | 2023-05-15 | [facility] | 1.015 | (missing) | (missing) | | (unavailable | 15:20:07 [facility] | | | | + + + +---------+ + + + + | Result panel 141 | + + + + + + + + + | | 2023-05-15 | [facility] | NEGATIVE | (missing) | (missing) | | (unavailable | 15:20:07 [facility] | | | | + + + + + + + + + | Result panel 142 | + + + + + +-------+ + + | | 2023-05-15 | [facility] | 5.0 | (missing) | (missing) | | (unavailable | 15:20:07 [facility] | | | + + + +-------+ + + + + | Result panel 143 | + + + + + + + + + | | 2023-05-15 | [facility] | NEGATIVE | (missing) | (missing) | | (unavailable | 15:20:07 [facility] | | | | + + + + + + + + + | Result panel 144 | + + + + + +-------+ + + | | 2023-05-15 | [facility] | 1.0 | (missing) | (missing) | | (unavailable | 15:20:07 [facility] | | | | + + + +-------+ + + + + | Result panel 145 | + + + + + + + + + | | 2023-05-15 | [facility] | NEGATIVE | (missing) | (missing) | | (unavailable | 15:20:07 [facility] | | | | + + + + + + + + + | Result panel 146 | + + + + + + + + + | | 2023-05-15 | [facility] | NEGATIVE | (missing) | (missing) | | (unavailable | 15:20:07 [facility] | | | | + + + + + + + + + | Result panel 147 | + + + + + +-------+ + + | | 2023-05-15 | [facility] | 0-1 | (missing) | (missing) | | (unavailable | 15:20:07 [facility] | | | | + + + +-------+ + + + + | Result panel 148 | + + + + + +-------+ + + | | 2023-05-15 | [facility] | 4-6 | (missing) | (missing) | | (unavailable | 15:20:07 [facility] | | | + + + +-------+ + + + + | Result panel 149 | + + + + + + + + + | | 2023-05-15 | [facility] | SQUAMOUS 2+ | (missing) | (missing) | | (unavailable | 15:20:07 [facility] | | | | + + + + + + + + + | Result panel 150 | + + + + + + + + + | | 2023-05-15 | [facility] | NONE SEEN | (missing) | (missing) | | (unavailable | 15:20:07 [facility] | | | | + + + + + + + + + | Result panel 151 | + + + + + + + + + | | 2023-05-15 | [facility] | NONE SEEN | (missing) | (missing) | | (unavailable | 15:20:07 [facility] | | | + + + + + + + + + | Result panel 152 | + + + + + + + + + | | 2023-05-15 | [facility] | NONE SEEN | (missing) | (missing) | | (unavailable | 15:20:07 [facility] | | | + + + + + + + + + | Result panel 153 | + + + + + +------+ + + | | 2023-05-15 | [facility] | No | (missing) | (missing) | | (unavailable | 15:20:07 [facility] | | | | + + + +------+ + + + + | Result panel 154 | + + + + + + + + + | | 2023-05-15 | [facility] | CLEAN CATCH | (missing) | (missing) | | (unavailable | 15:20:07 [facility] | | | | + + + + + + + + + | Result panel 155 | + + + + + +-------+ + + | | 2023-05-16 | [facility] | 2.8 | (missing) | (missing) | | (unavailable | 08:08:07 [facility] | | | | + + + +-------+ + + + + | Result panel 156 | + + + + + +-------+ + + | | 2023-05-16 | [facility] | 0.2 | (missing) | (missing) | | (unavailable | 08:08:07 [facility] | | | + + + +-------+ + + + + | Result panel 157 | + + + + + +-------+---------+ + | | 2023-05-16 | [facility] | 166 | mg/dL | (missing) | | (unavailable | 08:08:07 [facility] | | | | + + + +-------+---------+ + + + | Result panel 158 | + + + + + +------+---------+ + | | 2023-05-16 | [facility] | 13 | mg/dL | (missing) | | (unavailable | 08:08:07 [facility] | | | + + + +------+---------+ + + + | Result panel 159 | + + + + + +--------+---------+ + | | 2023-05-16 | [facility] | 0.81 | mg/dL | (missing) | | (unavailable | 08:08:07 [facility] | | | | + + + +--------+---------+ + + + | Result panel 160 | + + + + + +------+ + + | | 2023-05-16 | [facility] | 86 | (missing) | (missing) | | (unavailable | 08:08:07 [facility] | | | + + + +------+ + + + + | Result panel 161 | + + + + + +---------+ + + | | 2023-05-16 | [facility] | 16.04 | (missing) | (missing) | | (unavailable | 08:08:07 [facility] | | | + + + +---------+ + + + + | Result panel 162 | + + + + + +-------+ + + | | 2023-05-16 | [facility] | 136 | (missing) | (missing) | | (unavailable | 08:08:07 [facility] | | | | + + + +-------+ + + + + | Result panel 163 | + + + + + +-------+ + + | | 2023-05-16 | [facility] | 3.5 | (missing) | (missing) | | (unavailable | 08:08:07 [facility] | | | | + + + +-------+ + + + + | Result panel 164 | + + + + + +-------+ + + | | 2023-05-16 | [facility] | 101 | (missing) | (missing) | | (unavailable | 08:08:07 [facility] | | | | + + + +-------+ + + + + | Result panel 165 | + + + + + +------+ + + | | 2023-05-16 | [facility] | 29 | (missing) | (missing) | | (unavailable | 08:08:07 [facility] | | | + + + +------+ + + + + | Result panel 166 | + + + + + +-------+ + + | | 2023-05-16 | [facility] | 9.5 | (missing) | (missing) | | (unavailable | 08:: | [facility] | | | | + + + +-------+ + + + + | Result panel 167 | + + + + + +-------+---------+ + | | 2023-05-16 | [facility] | 8.5 | mg/dL | (missing) | | (unavailable | 08:08:07 [facility] | | | | + + + +-------+---------+ + + + | Result panel 168 | + + + + + +-------+ + + | | 2023-05-16 | [facility] | 7.4 | (missing) | (missing) | | (unavailable | 08:08: | [facility] | | | | + + + +-------+ + + + + | Result panel 169 | + + + + + +-------+ + + | | 2023-05-16 | [facility] | 2.7 | (missing) | (missing) | | (unavailable | 08::07 | [facility] | | | | + + + +-------+ + + + + | Result panel 170 | + + + + + +-------+ + + | | 2023-05-16 | [facility] | 4.7 | (missing) | (missing) | | (unavailable | 08:08:07 [facility] | | | + + + +-------+ + + + + | Result panel 171 | + + + + + +--------+ + + | | 2023-05-16 | [facility] | 0.57 | (missing) | (missing) | | (unavailable | 08:08:07 [facility] | | | + + + +--------+ + + + + | Result panel 172 | + + + + + +-------+ + + | | 2023-05-16 | [facility] | 0.5 | (missing) | (missing) | | (unavailable | 08:08:07 [facility] | | | + + + +-------+ + + + + | Result panel 173 | + + + + + +------+ + + | | 2023-05-16 | [facility] | 15 | (missing) | (missing) | | (unavailable | 08:08:07 [facility] | | | | + + + +------+ + + + + | Result panel 174 | + + + + + +------+ + + | | 2023-05-16 | [facility] | 13 | (missing) | (missing) | | (unavailable | 08:08:07 [facility] | | | | + + + +------+ + + + + | Result panel 175 | + + + + + +------+ + + | | 2023-05-16 | [facility] | 83 | (missing) | (missing) | | (unavailable | 08:08:07 [facility] | | | | + + + +------+ + + + + | Result panel 176 | + + + + + +------+ + + | | 2023-05-16 | [facility] | 40 | (missing) | (missing) | | (unavailable | 08:08:07 [facility] | | | | + + + +------+ + + + + | Result panel 177 | + + + + + +--------+ + + | | 2023-05-16 | [facility] | 15.8 | (missing) | (missing) | | (unavailable | 08:08:07 [facility] | | | | + + + +--------+ + + + + | Result panel 178 | + + + + + +--------+ + + | | 2023-05-16 | [facility] | 4.76 | (missing) | (missing) | | (unavailable | 08:08:07 [facility] | | | + + + +--------+ + + + + | Result panel 179 | + + + + + +--------+ + + | | 2023-05-16 | [facility] | 13.1 | (missing) | (missing) | | (unavailable | 08:08:07 [facility] | | | + + + +--------+ + + + + | Result panel 180 | + + + + + +--------+ + + | | 2023-05-16 | [facility] | 41.0 | (missing) | (missing) | | (unavailable | 08:08:07 [facility] | | | + + + +--------+ + + + + | Result panel 181 | + + + + + +--------+ + + | | 2023-05-16 | [facility] | 86.1 | (missing) | (missing) | | (unavailable | 08:08:07 [facility] | | | + + + +--------+ + + + + | Result panel 182 | + + + + + +--------+ + + | | 2023-05-16 | [facility] | 27.5 | (missing) | (missing) | | (unavailable | 08:08:07 [facility] | | | | + + + +--------+ + + + + | Result panel 183 | + + + + + +--------+ + + | | 2023-05-16 | [facility] | 32.0 | (missing) | (missing) | | (unavailable | 08:08:07 [facility] | | | + + + +--------+ + + + + | Result panel 184 | + + + + + +--------+ + + | | 2023-05-16 | [facility] | 15.2 | (missing) | (missing) | | (unavailable | 08:08:07 [facility] | | | | + + + +--------+ + + + + | Result panel 185 | + + + + + +-------+ + + | | 2023-05-16 | [facility] | 265 | (missing) | (missing) | | (unavailable | 08:08:07 [facility] | | | | + + + +-------+ + + + + | Result panel 186 | + + + + + +--------+ + + | | 2023-05-16 | [facility] | 82.6 | (missing) | (missing) | | (unavailable | 08:08:07 | [facility] | | | | + + + +--------+ + + + + | Result panel 187 | + + + + + +-------+ + + | | 2023-05-16 | [facility] | 7.6 | (missing) | (missing) | | (unavailable | 08:08:07 | [facility] | | | | + + + +-------+ + + + + | Result panel 188 | + + + + + +-------+ + + | | 2023-05-16 | [facility] | 6.8 | (missing) | (missing) | | (unavailable | 08:08:07 | [facility] | | | | + + + +-------+ + + Social History No information. Vital Signs + + + +---------+ | date | measurement | value | units | + + + +---------+ | 2022-12-15 00:00 | BMI | 31.8 | kg/m2 | + + + +---------+ | 2022-12-15 00:00 | height_metric | 162.56 | cm | + + + +---------+ | 2022-12-15 00:00 | height_standard | 64 | in | + + + +---------+ | 2022-12-15 00:00 | weight_metric | 84 | kg | + + + +---------+ | 2022-12-15 00:00 | weight_standard | 185.19 | lb | + + + +---------+ | 2022-12-18 00:00 | BP_diastolic | 83 | mmHg | + + + +---------+ | 2022-12-18 00:00 | BP_systolic | 152 | mmHg | + + + +---------+ | 2022-12-18 00:00 | heart_rate | 92 | /min | + + + +---------+ | 2022-12-18 00:00 | o2_saturation | 96 | % | + + + +---------+ | 2022-12-18 00:00 | respiration_rate | 16 | /min | + + + +---------+ | 2022-12-18 00:00 | temperature_metric | 36.44 | C | | | | | | + + + +---------+ | 2022-12-18 00:00 | | 97.6 | F | | | temperature_standar | | | | | d | | | + + + +---------+ | 2023-05-15 00:00 | BMI | 31.2 | kg/m2 | + + + +---------+ | 2023-05-15 00:00 | BP_diastolic | 79 | mmHg | + + + +---------+ | 2023-05-15 00:00 | BP_systolic | 120 | mmHg | + + + +---------+ | 2023-05-15 00:00 | heart_rate | 78 | /min | + + + +---------+ | 2023-05-15 00:00 | height_metric | 162.56 | cm | + + + +---------+ | 2023-05-15 00:00 | height_standard | 64 | in | + + + +---------+ | 2023-05-15 00:00 | o2_saturation | 99 | % | + + + +---------+ | 2023-05-15 00:00 | respiration_rate | 20 | /min | + + + +---------+ | 2023-05-15 00:00 | temperature_metric | 37.17 | C | | | | | | + + + +---------+ | 2023-05-15 00:00 | | 98.9 | F | | | temperature_standar | | | | | d | | | + + + +---------+ | 2023-05-15 00:00 | weight_metric | 82.5 | kg | + + + +---------+ | 2023-05-15 00:00 | weight_standard | 181.88 | lb | + + + +---------+ | 2023-05-16 00:00 | BMI | 32.2 | kg/m2 | + + + +---------+ | 2023-05-16 00:00 | BP_diastolic | 73 | mmHg | + + + +---------+ | 2023-05-16 00:00 | BP_systolic | 102 | mmHg | + + + +---------+ | 2023-05-16 00:00 | heart_rate | 79 | /min | + + + +---------+ | 2023-05-16 00:00 | height_metric | 162.56 | cm | + + + +---------+ | 2023-05-16 00:00 | height_standard | 64 | in | + + + +---------+ | 2023-05-16 00:00 | o2_saturation | 94 | % | + + + +---------+ | 2023-05-16 00:00 | respiration_rate | 15 | /min | + + + +---------+ | 2023-05-16 00:00 | temperature_metric | 2.56 | C | | | | | | + + + +---------+ | 2023-05-16 00:00 | | 36.6 | F | | | temperature_standar | | | | | d | | | + + + +---------+ | 2023-05-16 00:00 | weight_metric | 85 | kg | + + + +---------+ | 2023-05-16 00:00 | weight_standard | 187.39 | lb | + + + +---------+"
--- OUTSIDE RECORDS SUMMARY | ~2023-06-08 | XMS | Continuity of Care Document ---
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 | Role | Phone | + [...] | 2022-12-18 00:00 | PSEUDOEPHEDRINE HCL | [facility] | + + + + | 2023-05-15 00:00 | PSEUDOEPHEDRINE HCL | [facility] | + + + + | 2023-05-16 00:00 | PSEUDOEPHEDRINE HCL | [facility] | + + + + | 2022-12-18 00:00 | Ergocalciferol (Vitamin | [facility] | | | D2) | | + + + + | 2023-05-15 00:00 | Ergocalciferol (Vitamin | [facility] | | | D2) | | + + + + | 2023-05-16 00:00 | Ergocalciferol (Vitamin | [facility] | | | D2) | | + + + + | 2022-12-18 00:00 | BENZONATATE | [facility] | + + + + | 2023-05-15 00:00 | BENZONATATE | [facility] | + + + + | 2023-05-16 00:00 | BENZONATATE | [facility] | + + + + | 2023-05-16 00:00 | CEFDINIR | [facility] | + + + + | 2022-12-18 00:00 | CITALOPRAM HYDROBROMIDE | [facility] | + + + + | 2023-05-15 00:00 | CITALOPRAM HYDROBROMIDE | [facility] | + + + + | 2023-05-16 00:00 | CITALOPRAM HYDROBROMIDE | [facility] | + + + + | 2014-11-20 00:00 | OMEPRAZOLE | [facility] | + + + + | 2014-11-20 00:00 | OMEPRAZOLE | [facility] | + + + + | 2013-07-19 00:00 | OXAPROZIN | [facility] | + + + + | 2013-07-19 00:00 | OXAPROZIN | [facility] | + + + + | 2014-05-11 00:00 | AZITHROMYCIN | [facility] | + + + + | 2014-05-11 00:00 | AZITHROMYCIN | [facility] | + + + + | 2019-02-11 00:00 | PANTOPRAZOLE SODIUM | [facility] | + + + + | 2019-02-11 00:00 | PANTOPRAZOLE SODIUM | [facility] | + + + + | 2022-12-18 00:00 | GABAPENTIN | [facility] | + + + + | 2023-05-15 00:00 | GABAPENTIN | [facility] | + + + + | 2023-05-16 00:00 | GABAPENTIN | [facility] | + + + + | 2022-12-18 00:00 | MELOXICAM | [facility] | + + + + | 2023-05-15 00:00 | MELOXICAM | [facility] | + + + + | 2023-05-16 00:00 | MELOXICAM | [facility] | + + + + | 2022-12-18 00:00 | predniSONE | [facility] | + + + + | 2023-05-15 00:00 | predniSONE | [facility] | + + + + | 2023-05-16 00:00 | predniSONE | [facility] | + + + + | 2022-12-18 00:00 | GLIPIZIDE | [facility] | + + + + | 2023-05-15 00:00 | GLIPIZIDE | [facility] | + + + + | 2023-05-16 00:00 | GLIPIZIDE | [facility] | + + + + | 2022-12-18 00:00 | DULOXETINE HCL | [facility] | + + + + | 2023-05-15 00:00 | DULOXETINE HCL | [facility] | + + + + | 2023-05-16 00:00 | DULOXETINE HCL | [facility] | + + + + | 2022-12-18 00:00 | TRAZODONE HCL | [facility] | + + + + | 2023-05-15 00:00 | TRAZODONE HCL | [facility] | + + + + | 2023-05-16 00:00 | TRAZODONE HCL | [facility] | + + + + | 2013-08-06 00:00 | HYDROCODONE | [facility] | | | BIT/ACETAMINOPHEN | | + + + + | 2013-08-06 00:00 | HYDROCODONE | [facility] | | | BIT/ACETAMINOPHEN | | + + + + | 2022-12-18 00:00 | ALBUTEROL SULFATE | [facility] | + + + + | 2023-05-15 00:00 | ALBUTEROL SULFATE | [facility] | + + + + | 2023-05-16 00:00 | ALBUTEROL SULFATE | [facility] | + + + + | 2022-12-18 00:00 | | [facility] | | | LOSARTAN/HYDROCHLOROTHIAZID | | | | E | | + + + + | 2023-05-15 00:00 | | [facility] | | | LOSARTAN/HYDROCHLOROTHIAZID | | | | E | | + + + + | 2023-05-16 00:00 | | [facility] | | | LOSARTAN/HYDROCHLOROTHIAZID | | | | E | | + + + + | 2014-11-20 00:00 | ACETAMINOPHEN WITH CODEINE | [facility] | | | | | + + + + | 2014-11-20 00:00 | ACETAMINOPHEN WITH CODEINE | [facility] | | | | | + + + + | 2022-12-18 00:00 | Guaifenesin/Codeine | [facility] | | | Phosphate | | + + + + | 2023-05-15 00:00 | Guaifenesin/Codeine | [facility] | | | Phosphate | | + + + + | 2023-05-16 00:00 | Guaifenesin/Codeine | [facility] | | | Phosphate | | + + + + Problems + + + + | date | description | facility | + + + + | 2014-11-20 00:00 | Gastritis | [facility] | + + + + | 2014-11-20 00:00 | Gastritis | [facility] | + + + + | 2015-04-19 00:00 | Oliguria | [facility] | + + + + | 2015-04-19 00:00 | Oliguria | [facility] | + + + + | 2016-08-01 00:00 | Obstruction of esophagus | [facility] | | | due to food impaction | | + + + + | 2016-08-01 00:00 | Obstruction of esophagus | [facility] | | | due to food impaction | | + + + + | 2019-02-11 00:00 | Abdominal pain | [facility] | + + + + | 2019-02-11 00:00 | Abdominal pain | [facility] | + + + + | [...] + | 2022-12-15 00:00 | Pancreatitis | [facility] | + + + + | 2022-12-15 00:00 | Pancreatitis | [facility] | + + + + | [...] + + + | 2022-12-17 10:39 | MANUFACTURING CONTROLLER (CURRENT) USE OF | [facility] | | | ORAL HYPOGLYCEMIC DRUGS | | + + + + | 2022-12-17 10:39 | OTHER JAIL (CURRENT) | [facility] | | | DRUG [...] + | 2023-05-15 00:00 | Leukocytosis | [facility] | + + + + | 2023-05-15 00:00 | Weakness | [facility] | + + + + | [...] + + | 2023-05-15 12:13 | OTHER MANUFACTURING CONTROLLER (CURRENT) | [facility] | | | DRUG THERAPY | | + + + + | 2023-05-16 00:00 | Pyelonephritis | [facility] | + + + + | [...] + + | 2023-05-16 07:32 | OTHER JAIL (CURRENT) | [facility] | | | DRUG [...] (missing) | | (unavailable | 08:08:07 | [facility] | | | | | [...]
[~2023-06-08 14:28] MED LIST changes: +BENZONATATE100 MG PO; +CEFDINIR300 MG PO; +DULOXETINE HCL30 MG PO; +GABAPENTIN300 MG PO; +GUAIFENESIN-CO473 ML PO; +LOSARTAN-HCTZ1 EAC2 PO; +MELOXICAM7.5 MG PO; +SUDOGEST30 MG PO; +TRAZODONE HCL50 MG PO; +VENTOLIN HFA18 GM INH; +VITAMIN D21250 MCG PO
--- OUTSIDE RECORDS SUMMARY | 2023-06-08 14:31 | XMS ---
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 [place] VISIT COUNT (12 MO.) [address] [place] [address] TOTAL 4 NOTE: Visits indicate total known visits. ED/UCC VISIT TRACKING (12 MO.) 06/08/2023 14:[address] [facility] [place] TYPE: Emergency COMPLAINT: - VOMITING, WEAK, UNABLE TO FEEL HANDS 05/16/2023 07:[address] [facility] [place] TYPE: Emergency COMPLAINT: - COLD SYMPTOMS DIAGNOSES: - Essential (primary) hypertension - Fever, unspecified - Other residential (current) drug therapy - Tubulo-interstitial nephritis, not specified as acute or chronic 05/15/2023 12:13 [facility] TYPE: Emergency COMPLAINT: - SORE THROAT, VOMITING, LOWER BACK PAIN, HEADACHE DIAGNOSES: - Contact with and (suspected) exposure to COVID-19 - Elevated white blood cell count, unspecified - Essential (primary) hypertension - Fever, unspecified - Other residential (current) drug therapy - Weakness 12/15/2022 11:34 [facility] TYPE: Emergency COMPLAINT: - ABD/LOWER BACK PAIN INPATIENT VISIT TRACKING (12 MO.) 12/17/2022 10:39 [facility] TYPE: Medical Surgical COMPLAINT: - ACUTE PANCREATITIS DIAGNOSES: - Acquired absence of both cervix and uterus - Acquired absence of both cervix and uterus - Acquired absence of other organs - Acquired absence of other organs - Acquired absence of other specified parts of digestive tract - Acquired absence of other specified parts of digestive tract - Acute pancreatitis without necrosis or infection, unspecified - Contact with and (suspected) exposure to COVID-19 - Contact with and (suspected) exposure to COVID-19 - Depression, unspecified - Depression, unspecified - Essential (primary) hypertension - Essential (primary) hypertension - long term care phlebotomist (current) use of oral hypoglycemic drugs - long term care phlebotomist (current) use of oral hypoglycemic drugs - Other remote computer terminal operator (current) drug therapy - Other remote computer terminal operator (current) drug therapy - Personal history of pneumonia (recurrent) - Personal history of pneumonia (recurrent) - Type 2 diabetes mellitus with diabetic neuropathy, unspecified - Type 2 diabetes mellitus with diabetic neuropathy, unspecified [email or web address]
[2023-06-08 14:54] LABS: BASOPHILS 0.6 % (0-2); EOSINOPHILS 0.3 % (0-6); HEMOGLOBIN 15.1 g/dL (12.0-18.0); LYMPHOCYTES 29.3 % (24-44); MCH 28.5 (27-36); MCHC 34.2 g/dl (30-36); MCV 83.1 fl (81-99); MONOCYTES 5.1 % (0-12); NEUTROPHILS 64.7 % (39-80); PLATELET COUNT 352 K/uL (140-440); RDW 14.6 (10.5-15.0)
[2023-06-08 15:09] LABS: ALBUMIN 3.6 g/dL (3.4-5.0); ALBUMIN/GLOBULIN RATIO 0.73 (1.1-2.4); ANION GAP 19.3 (7-21); BILIRUBIN, TOTAL 0.5 ng/dL (0.2-1.0); BUN/CREATININE RATIO 15.09 (6.0-28.6); CALCIUM 9.5 mg/dL (8.5-10.1); CREATININE, SERUM 1.06 mg/dL (0.55-1.02); MAGNESIUM 1.5 mg/dL (1.8-2.4); POTASSIUM 3.3 mmol/L (3.5-5.1); PROTEIN, TOTAL 8.5 g/dL (6.4-8.2)
[2023-06-08 17:10] LABS: BILIRUBIN, URINE NEGATIVE (negative); BLOOD/HGB, URINE NEGATIVE (Negative); KETONE, URINE SMALL (Negative); LEUK ESTERASE, URINE NEGATIVE (negative); NITRITE, URINE NEGATIVE (negative)
[2023-06-08 17:18] LABS: BACTERIA, URINE NONE SEEN /hpf (negative); CASTS, URINE NONE SEEN \\lpf; COLLECTION TYPE, URINE CLEAN CATCH; CRYSTALS, URINE NONE SEEN (0-1+); EPITHELIAL CELLS, URINE SQUAMOUS 2+ /lpf (0-1+); RED BLOOD CELLS, URINE 0-1 /hpf (0-5); REFLEX CULTURE, URINE No (No)
[2023-06-08] MEDS ORDERED: ONDANSETRON ODT4 MG PO ×2 (18:28→19:12)
[2023-06-08 18:39] VITALS: BP 141/87
--- NOTE | 2023-06-09 05:58 | EKG ---
[facility] [address] [facility] [place] [address] Signed Normal sinus rhythm Minimal voltage criteria for LVH, may be normal variant ( [place] product ) Possible Lateral infarct , age undetermined Abnormal ECG No previous ECGs available Confirmed by FRAN THAKKAR MD ([id number]) on 06/09/2023 5:58:00 AM Electronically Signed By: FRAN THAKKAR 06/09/23 0558 PATIENT NAME: STEPHAN RAUSCHNIKOS ZULETA Electrocardiogram DATE OF : 66 PHYSICIAN: FRAN THAKKAR REPORT #: [id number] REPORT IS CONFIDENTIAL AND NOT TO BE RELEASED WITHOUT AUTHORIZATION
== END 2023-06-08 18:40 | disposition home or self-care (01) ==
LOC: ED 14:28
PROVIDERS: Emergency Medicine
DX: R11.2 Nausea with vomiting, unspecified (principal); E83.42 Hypomagnesemia; I10 Essential (primary) hypertension; Z79.899 Other long term (current) drug therapy
CPT/HCPCS: 36415; 80053; 81001; 83735; 85025; 93005; 93010; J2405; J3475; J7030

== ENCOUNTER 2024-07-31 19:09 | Emergency (ER) | payer OTHER ==
[~2024-07-31] VITALS: Ht 162.6 cm; Wt 82.0 kg
[~2024-07-31 19:09] MED LIST changes: +ONDANSETRON ODT4 MG PO
[2024-07-31 19:56] LABS: BASOPHILS 0.5 % (0-2); EOSINOPHILS 2.7 % (0-6); HEMATOCRIT 39.7 % (35.0-50.0); HEMOGLOBIN 13.2 g/dL (12.0-18.0); LYMPHOCYTES 19.7 % (24-44); MCH 28.8 (27-36); MCHC 33.3 g/dl (30-36); MCV 86.6 fl (81-99); MONOCYTES 6.2 % (0-12); NEUTROPHILS 70.9 % (39-80); PLATELET COUNT 410 K/uL (140-440); RBC 4.58 M/ul (4.3-5.7); RDW 15.3 (10.5-15.0)
[2024-07-31] MEDS ORDERED: MORPHINE SULFATE 4 MG/ML VIAL IV ONE (20:00)
[2024-07-31] MEDS ORDERED: droPERidol 5 MG/2 ML VIAL IV ONE (20:00)
[2024-07-31] MEDS ORDERED: SODIUM CHLORIDE 0.9% 1,000 ML IV ONE ×2 (20:00→22:30)
[2024-07-31 20:12] LABS: ALBUMIN/GLOBULIN RATIO 0.63 (1.1-2.4); BILIRUBIN, TOTAL 0.7 ng/dL (0.2-1.0); BUN/CREATININE RATIO 15.53 (6.0-28.6); CALCIUM 9.6 mg/dL (8.5-10.1); CREATININE, SERUM 1.03 mg/dL (0.55-1.02); MAGNESIUM 1.8 mg/dL (1.8-2.4); PROTEIN, TOTAL 7.8 g/dL (6.4-8.2)
[2024-07-31] MEDS ORDERED: HYDROmorphone HCL 1 MG/ML SYR IV PRN (21:45)
[2024-07-31] MEDS ORDERED: ondansetron HCL 4 MG/2 ML VIAL IV ONE (21:45)
[2024-07-31] MEDS ORDERED: POTASSIUM CHLORIDE 10 MEQ TABCR PO ONE (22:00)
[2024-07-31 22:53] LABS: BILIRUBIN, URINE NEGATIVE (negative); BLOOD/HGB, URINE NEGATIVE (Negative); KETONE, URINE SMALL (Negative); LEUK ESTERASE, URINE NEGATIVE (negative); NITRITE, URINE NEGATIVE (negative)
[2024-07-31 23:00] LABS: BACTERIA, URINE 1+ /hpf (negative); CASTS, URINE NONE SEEN \\lpf; CRYSTALS, URINE NONE SEEN (0-1+); EPITHELIAL CELLS, URINE SQUAMOUS 2+ /lpf (0-1+)
[2024-07-31 23:01] LABS: COLLECTION TYPE, URINE CLEAN CATCH; REFLEX CULTURE, URINE No (No)
[2024-07-31] MEDS ORDERED: PROMETHEGAN25 MG PR (23:09)
[2024-07-31] MEDS ORDERED: MACROBID 100 M100 MG PO (23:09)
[2024-07-31] MEDS ORDERED: ONDANSETRON ODT8 MG PO (23:09)
[2024-07-31] MEDS ORDERED: NITROFURANTOIN MONOHYD MACROCR 100 MG HOME.PACK PO ONE (23:15)
[2024-07-31] MEDS ORDERED: PROMETHAZINE HCL 25 MG SUPP. HOME.PACK PR ONE (23:15)
[2024-07-31] MEDS ORDERED: ONDANSETRON 4 MG HOME.PACK SL ONE (23:15)
[2024-07-31 23:33] VITALS: BP 142/79
== END 2024-07-31 23:35 | disposition home or self-care (01) ==
LOC: ED 19:09
PROVIDERS: Family Medicine
DX: N39.0 Urinary tract infection, site not specified (principal); T81.89XA Other complications of procedures, not elsewhere classified, initial encounter; R11.2 Nausea with vomiting, unspecified; I10 Essential (primary) hypertension; Z79.84 Long term (current) use of oral hypoglycemic drugs; Z79.899 Other long term (current) drug therapy
CPT/HCPCS: 36415; 74018; 80053; 81001; 83690; 83735; 85025; 96361; 96374; 96375; 99284-25; A9270; J1790; J2270; J2405; J7030

== ENCOUNTER 2025-02-20 12:26 | Day surgery (SDC) | payer OTHER ==
[~2025-02-20] VITALS: Ht 162.6 cm; Wt 79.5 kg
[~2025-02-20 12:26] MED LIST changes: +IBLOOD GLUCOSE TEST STRIP 1 EA TEST VI PRN; +LACTATED RINGER'S 1,000 ML IV SCH; +LIDOCAINE HCL 1% 5 ML SDV INJ ONE; +MACROBID 100 M100 MG PO; +MIDAZOLAM HCL 5 MG/5 ML VIAL IV PRN; +ONDANSETRON ODT8 MG PO; +PROMETHEGAN25 MG PR; +fentaNYL citrate 100 MCG/2 ML VIAL IV PRN
[2025-02-20 12:52] VITALS: BP 180/103
[2025-02-20] MEDS ORDERED: CEFAZOLIN SODIUM 2 GM/20 ML SYR IV ONE (13:15)
[2025-02-20] MEDS ORDERED: MIDAZOLAM HCL 5 MG/5 ML VIAL ONE (14:15)
[2025-02-20] MEDS ORDERED: fentaNYL citrate 100 MCG/2 ML VIAL ONE (14:15)
--- NOTE | 2025-02-20 15:08 | NUR ---
02/20/[address] PRESENTS TO THE BEDSIDE AND IS SPEAKING WITH THE PATIENT. HER QUESTIONS ARE ANSWERED.
[2025-02-20 15:36] VITALS: BP 174/106
--- NOTE | 2025-02-20 19:14 | OR ---
[facility] [address] [place], [place] [address] Signed DATE OF OPERATION: 02/20/2025 SURGEON: Yanet Marie MD PREOPERATIVE DIAGNOSIS: Persistent diarrhea. POSTOPERATIVE DIAGNOSIS: Normal appearing colon, rectum and ilium. PROCEDURE: Total colonoscopy to cecum with intubation of ileum and multiple biopsies. ANESTHESIA: Intravenous sedation fentanyl 100 mcg and Versed 5 mg. INDICATION: This 55-year-old white woman is a patient of Ashlie Nesbitt PA-C. She is known to me from the past. I last saw her in 2020 for lesion excision. She has undergone colonoscopy in 2019 or in 2017 and upper endoscopy in 2017 as well. There were no findings of note on colonoscopy in the past. She has not had a cholecystectomy, but has had hysterectomy. She is admitted at this time to undergo colonoscopy on the basis of her significant diarrhea. Understands the risk of bleeding, infection, and perforation. FINDINGS: The prep was excellent. Complete colonoscopy was undertaken of cecum and intubation of the ileum accomplished as well. The ileum and colon and rectum all appeared normal. Biopsies were taken throughout to assess for microscopic colitis. DESCRIPTION OF PROCEDURE: The patient was brought to the endoscopy suite and placed in lateral decubitus position given intravenous sedation to the point of slurred speech and nystagmus digital. Digital rectal examination was normal. An Olympus video colonoscope was passed in the rectum and manipulated throughout the colon ultimately passing into the cecum itself. The ileocecal valve and appendiceal orifice were normal. With various manipulations, the ileum was intubated showing normal ileal mucosa. Biopsies were taken of the left. Scope was withdrawn and biopsies then taken of the cecum. The scope was withdrawn and biopsies taken of the right colon, ultimately the left colon and rectum. Retroflexed view was normal as well. Scope was removed. The patient was taken to the recovery room in good condition. Electronically Signed By: YANET MAREI MD 02/20/25 191 PATIENT NAME: RICH RAUSCH OPERATIVE REPORT DATE OF : 66 REPORT #: [id number] PHYSICIAN: YANET MARIE MD PCP: ASHLIE NESBITT PAC REPORT IS CONFIDENTIAL AND NOT TO BE RELEASED WITHOUT AUTHORIZATION [facility] [address] [place], [place] [address] Signed CONCLUDING DIAGNOSIS: Normal-appearing colon, rectum and ilium; possibility remains a microscopic colitis (collagenous colitis, etc.) for which biopsies will be reviewed. In the meantime, we will prescribe loperamide 4 mg p.o. t.i.d. for symptom control and see her back in the office in 4 to 6 weeks. MD EMMA Gracia/SOLITARIO /[id number] cc: Ashlie Nesbitt PA-C Copies: ~ Electronically Signed By: YANET MARIE MD 02/20/251913 PATIENT NAME: RICH RAUSCH OPERATIVE REPORT DATE OF : 66 REPORT #: [id number] PHYSICIAN: YANET MARIE MD PCP: ASHLIE NESBITT PAC REPORT IS CONFIDENTIAL AND NOT TO BE RELEASED WITHOUT AUTHORIZATION
[2025-02-21] MEDS ORDERED: NORVASC5 MG PO (18:07)
--- NOTE | 2025-02-22 15:21 | PATH ---
[facility] [address] [place], [place] [address] Signed SPECIMEN(S): A TERMINAL ILEUM BIOPSY SPECIMEN(S): B CECUM COLON BIOPSY SPECIMEN(S): C ASCENDING COLON BIOPSY SPECIMEN(S): D SIGMOID COLON BIOPSY SPECIMEN(S): E RECTUM BIOPSY SPECIMEN SOURCE: A. TERMINAL ILEUM BIOPSY B. CECUM COLON BIOPSY C. ASCENDING COLON BIOPSY D. SIGMOID COLON BIOPSY E. RECTUM BIOPSY CLINICAL HISTORY: History of polyps, diarrhea FINAL PATHOLOGIC DIAGNOSIS: A. Terminal ileum, biopsy: - Small bowel mucosa with intact villous architecture. - Negative for ileitis, dysplasia, or malignancy. B. Cecum, biopsy: - Fragments of superficial colonic mucosa with no significant histopathological changes. - Negative for colitis, dysplasia, or malignancy. C. Ascending colon, biopsies: - Fragments of superficial colonic mucosa with no significant histopathological changes. - Negative for colitis, dysplasia, or malignancy. D. Sigmoid colon, biopsy: - Fragments of superficial colonic mucosa with focal hyperplastic change. - Negative for colitis, dysplasia, or malignancy. E. Rectum, biopsy: - Fragments of superficial rectal mucosa with no significant histopathological changes. - Negative for proctitis, dysplasia, or malignancy. DWS:[facility] MICROSCOPIC EXAMINATION: Histologic sections of all submitted blocks are examined by light microscopy. These findings, together with the gross examination, support the pathologic diagnosis. PATIENT NAME: RICH RAUSCH SONG PATHOLOGY DATE OF : 66 REPORT #: [id number] PHYSICIAN: [facility] PATH[facility] PCP: ASHLIE FRASER PAC REPORT IS CONFIDENTIAL AND NOT TO BE RELEASED WITHOUT AUTHORIZATION [facility] [address] [place], [place] [address] Signed GROSS DESCRIPTION: A. The specimen, labeled and designated "Rausch, terminal ileum biopsy," is received in formalin and consists of two bland soft tissue fragments, ranging from 0.2-0.3 cm. Entirely submitted in (A1). B. The specimen, labeled and designated "Rausch, cecum colon biopsy," is received in formalin and consists of two bland soft tissue fragments, ranging from 0.4-0.8 cm. Entirely submitted in (B1). C. The specimen, labeled and designated "Rausch, ascending colon biopsy," is received in formalin and consists of three bland soft tissue fragments, ranging from 0.2-0.3 cm. Entirely submitted in (C1). D. The specimen, labeled and designated "Rausch, sigmoid colon biopsy," is received in formalin and consists of three bland soft tissue fragments, ranging from 0.2-0.7 cm. Entirely submitted in (D1). E. The specimen, labeled and designated "Rausch, rectum biopsy," is received in formalin and consists of two bland soft tissue fragments, ranging from 0.2-0.3 cm. Entirely submitted in (E1). VB (under the direct supervision of a pathologist) The Gross Description was prepared using a voice recognition system. The report was reviewed for accuracy; however, sound-alike word errors, addition and/or deletions may occur. If there is any question about this report, please contact Client Services. PERFORMING LABORATORY: Technical component was performed by [facility], [address] [place] [address] (CLIA# [id number]). Professional interpretation was performed by [facility], [facility] [place] [address] (CLIA#: [id number]). Diagnostician: Deepak Rodriguez MD Pathologist Electronically Signed 02/22/2025 Copies: ~ PATIENT NAME: RICH ARUSCH SONG PATHOLOGY DATE OF : 66 REPORT #: [id number] PHYSICIAN: [facility] PCP: ASHLIE FRASER PAC REPORT IS CONFIDENTIAL AND NOT TO BE RELEASED WITHOUT AUTHORIZATION
== END 2025-02-20 15:40 | disposition home or self-care (01) ==
LOC: OPS 12:26 → DS 12:27 → OPS 13:40 → DS 14:00 → OPS 14:00
PROVIDERS: ATTEND Surgery
PROC: 0DBN8ZX Excision of Sigmoid Colon, Via Natural or Artificial Opening Endoscopic, Diagnostic (ICD-10-PCS; 2025-02-20)
PROC: 0DBP8ZX Excision of Rectum, Via Natural or Artificial Opening Endoscopic, Diagnostic (ICD-10-PCS; 2025-02-20)
PROC: 0DBF8ZX Excision of Right Large Intestine, Via Natural or Artificial Opening Endoscopic, Diagnostic (ICD-10-PCS; 2025-02-20)
PROC: 0DBB8ZX Excision of Ileum, Via Natural or Artificial Opening Endoscopic, Diagnostic (ICD-10-PCS; 2025-02-20)
PROC: 0DBH8ZX Excision of Cecum, Via Natural or Artificial Opening Endoscopic, Diagnostic (ICD-10-PCS; principal; 2025-02-20 14:30)
DX: R19.7 Diarrhea, unspecified (principal); I10 Essential (primary) hypertension; E11.9 Type 2 diabetes mellitus without complications; Z79.4 Long term (current) use of insulin; Z79.899 Other long term (current) drug therapy; Z86.0100 Personal history of colon polyps, unspecified; Z90.710 Acquired absence of both cervix and uterus
CPT/HCPCS: 99153; G0500; J2250; J3010; J7121

== ENCOUNTER 2025-02-21 14:21 | Emergency (ER) | payer OTHER ==
[~2025-02-21] VITALS: Ht 162.6 cm; Wt 83.5 kg
[~2025-02-21 14:21] MED LIST changes: -IBLOOD GLUCOSE TEST STRIP 1 EA TEST VI PRN; -LACTATED RINGER'S 1,000 ML IV SCH; -LIDOCAINE HCL 1% 5 ML SDV INJ ONE; -MIDAZOLAM HCL 5 MG/5 ML VIAL IV PRN; -fentaNYL citrate 100 MCG/2 ML VIAL IV PRN
[2025-02-21] MEDS ORDERED: ACETAMINOPHEN 500 MG TAB PO ONE (16:00)
[2025-02-21] MEDS ORDERED: SODIUM CHLORIDE 0.9% 1,000 ML IV ONE (16:00)
[2025-02-21 16:01] LABS: BASOPHILS 0.6 % (0-2); EOSINOPHILS 5.8 % (0-6); HEMATOCRIT 45.5 % (35.0-50.0); HEMOGLOBIN 15.6 g/dL (12.0-18.0); LYMPHOCYTES 29.6 % (24-44); MCH 27.8 (27-36); MCHC 34.2 g/dl (30-36); MCV 81.3 fl (81-99); MONOCYTES 9.1 % (0-12); NEUTROPHILS 54.9 % (39-80); PLATELET COUNT 343 K/uL (140-440); RDW 15.6 (10.5-15.0)
[2025-02-21 16:10] LABS: ALBUMIN 3.4 g/dL (3.4-5.0); ALBUMIN/GLOBULIN RATIO 0.76 (1.1-2.4); ANION GAP 10.8 (7-21); BILIRUBIN, TOTAL 0.3 mg/dL (0.2-1.0); BUN/CREATININE RATIO 12.98 (6.0-28.6); CALCIUM 8.8 mg/dL (8.5-10.1); CREATININE, SERUM 0.77 mg/dL (0.55-1.02); POTASSIUM 3.8 mmol/L (3.5-5.1); PROTEIN, TOTAL 7.9 g/dL (6.4-8.2)
[2025-02-21 17:01] LABS: BILIRUBIN, URINE NEGATIVE (negative); BLOOD/HGB, URINE NEGATIVE (Negative); KETONE, URINE NEGATIVE (Negative); LEUK ESTERASE, URINE NEGATIVE (negative); NITRITE, URINE NEGATIVE (negative); PH, URINE 7.5 (5-7)
[2025-02-21] MEDS ORDERED: hydrALAZINE HCL 20 MG/ML VIAL IV ONE (17:30)
[2025-02-21] MEDS ORDERED: NORVASC5 MG PO (18:07)
[2025-02-21 18:30] VITALS: BP 160/93
--- NOTE | 2025-02-22 14:37 | EKG ---
[facility] [address] [facility] [place] [address] Signed Normal sinus rhythm Minimal voltage criteria for LVH, may be normal variant ( [place] product ) Anterior infarct (cited on or before 08-JUN-2023) Abnormal ECG When compared with ECG of 08-JUN-2023 15:09, No significant change was found Confirmed by Parker Perez DO ([id number]) on 02/22/2025 2:37:47 PM Electronically Signed By: PARKER PEREZ DO 02/22/25 1437 PATIENT NAME: RICH RAUSCH SONG Electrocardiogram DATE OF : 66 PHYSICIAN: PARKER PEREZ DO REPORT #: [id number] REPORT IS CONFIDENTIAL AND NOT TO BE RELEASED WITHOUT AUTHORIZATION
== END 2025-02-21 18:30 | disposition home or self-care (01) ==
LOC: ED 14:21
PROVIDERS: Emergency Medicine
DX: I10 Essential (primary) hypertension (principal)
CPT/HCPCS: 36415; 80053; 81003; 85025; 93005; 93010; 96374; 99284; A9270; J0360; J7030